=== PATIENT | male | born 1990 | race Caucasian/White ===

== ENCOUNTER 2017-01-24 12:15 | Emergency (ER) | payer SELFPAY ==
[2017-01-24] MEDS ORDERED: DIPHTH,PERTUSS(ACELL),TET 0.5 ML DISP.SYRIN IM ONE (12:31)
[2017-01-24] MEDS ORDERED: AMOX TR/POT CLAV 875MG/125MG TABLETS (FP) PO ONE (12:31)
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
[2017-01-24 12:38] VITALS: BP 123/87; PULSE 91; TEMP 98.1; BMI 28.3
[2017-01-24] MEDS ORDERED: AMOX TR/POT CLAV 875MG/125MG TABLETS (FP) ONE (12:50)
== END 2017-01-24 13:10 | disposition home or self-care (01) ==
LOC: FER 12:15
PROC: 3E0234Z Introduction of Serum, Toxoid and Vaccine into Muscle, Percutaneous Approach (ICD-10-PCS; principal; 2017-01-24)
DX: S60.512A Abrasion of left hand, initial encounter (principal); S20.319A Abrasion of unspecified front wall of thorax, initial encounter; Y04.1XXA Assault by human bite, initial encounter; Y93.89 Activity, other specified; Y92.159 Unspecified place in reform school as the place of occurrence of the external cause; Y99.0 Civilian activity done for income or pay
CPT/HCPCS: 90715; 99282-25